=== PATIENT | male | born 1995 | race Caucasian/White ===

== ENCOUNTER 2023-08-06 09:32 | Emergency (ER) | payer BC ==
[~2023-08-06] VITALS: Ht 180.3 cm; Wt 76.2 kg
[2023-08-06 09:45] VITALS: BP 109/59; PULSE 59; RESP 20; TEMP 98.1; O2SAT 100
[2023-08-06] MEDS ORDERED: IBUPROFEN 600 MG TAB ONE (11:57)
[2023-08-06] MEDS: IBUPROFEN 600 MG TAB PO ONE (11:59)
[2023-08-06] MEDS ORDERED: IBUP-2213 PO (13:21)
[2023-08-06] MEDS ORDERED: ONDA-188 SL (13:21)
[2023-08-06 13:38] VITALS: BP 115/76; PULSE 74; RESP 17; O2SAT 98
== END 2023-08-06 13:40 | disposition home or self-care (01) ==
LOC: MED 09:32
DX: S13.8XXA Sprain of joints and ligaments of other parts of neck, initial encounter (principal); S06.0X0A Concussion without loss of consciousness, initial encounter; Z79.899 Other long term (current) drug therapy; X58.XXXA Exposure to other specified factors, initial encounter; Y93.89 Activity, other specified; Y92.89 Other specified places as the place of occurrence of the external cause; Y99.8 Other external cause status
CPT/HCPCS: 70450; 72050; 99284